=== PATIENT | female | born 1965 | race Caucasian/White ===

== ENCOUNTER 2020-04-08 10:42 | Day surgery (SDC) | payer OTHER ==
[2020-04-08] MEDS ORDERED: ceFAZolin SODIUM 1 GM VIAL ONE (11:21)
[2020-04-08] MEDS ORDERED: LIDOCAINE HCL/PF 2% SDV 5ML VIAL ONE (11:21)
[2020-04-08] MEDS ORDERED: DEXAMETHASONE SOD PHOSPHATE 4 MG/1 ML VIAL ONE (11:21)
[2020-04-08] MEDS ORDERED: PROPOFOL 20 ML ONE ×2 (11:21)
[2020-04-08] MEDS ORDERED: MIDAZOLAM HCL 2 MG/2 ML SINGLE DOSE VIAL ONE ×2 (11:22)
--- NOTE | 2020-04-08 11:33 | HP ---
History & Physical Update - History History: No Change - Physical Physical: No Change - Assessment Assessment: No Change - Plan Plan: No Change
[2020-04-08] MEDS ORDERED: ACETAMINOPHEN 1000 MG/100 ML VIAL (NON FORMULARY) IVPB ONE (11:36)
[2020-04-08] MEDS ORDERED: LIDOCAINE HCL 1%, 10 MG/ML (20ML VIAL) ONE (11:40)
[2020-04-08] MEDS ORDERED: ceFAZolin SODIUM 1 GM VIAL IVPB ONE (11:50)
[2020-04-08] MEDS ORDERED: LIDOCAINE HCL 1%, 10 MG/ML (20ML VIAL) NR ONE (11:58)
[2020-04-08] MEDS ORDERED: KETOROLAC TROMETHAMINE 30 MG/1 ML VIAL ONE (12:05)
[2020-04-08] MEDS ORDERED: ONDANSETRON 4 MG/2 ML VIAL ONE (12:05)
[2020-04-08] MEDS ORDERED: SODIUM CHLORIDE 0.9% P/F 10 ML VIAL IJ ONE (12:06)
[2020-04-08] MEDS ORDERED: oxyCODONE HCL 5 MG TABLET PO PRN ×2 (12:29)
[2020-04-08] MEDS ORDERED: ONDANSETRON 4 MG/2 ML VIAL IVPUSH PRN (12:29)
[2020-04-08] MEDS ORDERED: LACTATED RINGERS SOLUTION 1,000 ML IV SCH (12:30)
[2020-04-08 15:49] VITALS: TEMP 98
[2020-04-08] MEDS ORDERED: oxyCODONE HCL 5 MG TABLET ONE (16:16)
[2020-04-08 17:18] VITALS: BP 116/72; PULSE 69
--- NOTE | 2020-04-08 19:34 | OP ---
DATE OF OPERATION: 04/08/2020 SURGEON: Lance Reddy MD. ANESTHESIOLOGIST: Amna Wynn MD. ANESTHESIA: General anesthesia. CEMENT LOADER: None. ESTIMATED BLOOD LOSS: 50 mL. FINDINGS: Hypermobile urethra. Cystoscopy is normal. SPECIMEN: No specimen. PREOPERATIVE INDICATION: The patient is a 54-year-old female with stress urinary incontinence secondary to hypermobile urethra. She has incontinence on Valsalva. This is well confirmed on urodynamics as well. She comes today for suburethral sling placement. DESCRIPTION OF PROCEDURE: The patient was brought to the OR, placed on the table in the supine position. Given general anesthesia and IV antibiotics and placed in the modified lithotomy position. The groin was prepped and draped sterilely. Meza was placed and timeout was performed. The mid portion of the urethra was identified. Pitressin and lidocaine were injected submucosally over the mid portion of the urethra and in a lateral fashion. The incision was made over the mid portion of the urethra at the midline, and the vaginal mucosa was sharply dissected off the periurethral tissues in a lateral fashion. The bladder was emptied under suction. A mini sling was placed. The trocars were placed under fingertip control through the vaginal incision towards the obturator canal. Both anchors deployed successfully. Cystoscopy was performed with a 17 [place] cystoscope. No evidence of peroration. Both UOs were clear with good clear efflux. No tumors or stones were seen. The bladder was left full. The sling was tightened with a tightening suture until no leakage was seen. It lay flat on the urethra without tension. Good hemostasis was maintained. The incision was closed with 2-0 Vicryl suture. No bleeding was seen at the end of the case. Meza catheter was removed. The patient was woken up. Micha [id number]
== END 2020-04-08 17:10 | disposition home or self-care (01) ==
LOC: JASU-SURG 10:42
PROVIDERS: ATTEND Urology
PROC: 0TSD0ZZ Reposition Urethra, Open Approach (ICD-10-PCS; principal; 2020-04-08 11:30)
DX: N39.3 Stress incontinence (female) (male) (principal); N36.41 Hypermobility of urethra; E11.9 Type 2 diabetes mellitus without complications
CPT/HCPCS: 57288; C1771; 82962; 94760; J0131

== ENCOUNTER 2021-08-13 20:11 | Emergency (ER) | payer OTHER ==
[2021-08-13 20:37] VITALS: TEMP 97.7; BMI 36.8
[2021-08-13] MEDS ORDERED: ACETAMINOPHEN 500 MG TABLET (FP) PO ONE (20:53)
[2021-08-13] MEDS ORDERED: ACETAMINOPHEN 325 MG TABLET (FP) ONE (21:04)
[2021-08-13] MEDS ORDERED: LIDOCAINE PATCH REMOVAL MC SCH (22:00)
[2021-08-13] MEDS ORDERED: LIDOCAINE 5% TOPICAL PATCH TP ONE (23:45)
[2021-08-14] MEDS ORDERED: IBUPROFEN 400 MG TABLET (FP) PO ONE ×2 (00:27→00:38)
[2021-08-14 01:23] VITALS: BP 114/76; PULSE 73
== END 2021-08-14 01:23 | disposition home or self-care (01) ==
LOC: JER 20:11
DX: M54.6 Pain in thoracic spine (principal); W19.XXXA Unspecified fall, initial encounter; Y92.9 Unspecified place or not applicable
CPT/HCPCS: 70450-TC; 72125-TC; 72128-TC; 72131-TC; 99284-25

== ENCOUNTER 2021-12-21 04:08 | Inpatient (IN) | payer OTHER ==
[2021-12-20 09:58] VITALS: BMI 41.3
[2021-12-21] MEDS ORDERED: LIDOCAINE 1%/EPI 1:100000 (20 ML MULTI DOSE VIAL) ONE (11:26)
[2021-12-21] MEDS ORDERED: BUPIVACAINE HCL/PF 0.5% (5MG/ML) 10 ML VIAL ONE (11:55)
[2021-12-21] MEDS ORDERED: THROMBIN (BOVINE) 20,000 UNIT VIAL TP ONE (11:55)
[2021-12-21] MEDS ORDERED: GENTAMICIN SO4 80 MG/2 ML VIAL ONE (11:55)
[2021-12-21] MEDS ORDERED: BUPIVACAINE LIPOSOME/PF (EXPAREL) 266 MG/20 ML VIAL ONE (11:56)
[2021-12-21] MEDS ORDERED: VANCOMYCIN 1 GM in D5W (PRE-DOCKED) 1,000 MG/250 ML IVPB ONE ×3 (12:45→13:35)
[2021-12-21] MEDS ORDERED: LIDOCAINE 1%/EPI 1:100000 (20 ML MULTI DOSE VIAL) IJ ONE ×2 (12:45→13:35)
[2021-12-21] MEDS ORDERED: ceFAZolin SODIUM 1 GM VIAL IVPB ONE ×4 (12:45→18:03)
[2021-12-21] MEDS ORDERED: THROMBIN (BOVINE) 5,000 UNIT VIAL TP ONE ×3 (12:46→14:17)
[2021-12-21] MEDS ORDERED: GENTAMICIN SO4 80 MG/2 ML VIAL IVPB ONE ×4 (12:46→14:45)
[2021-12-21] MEDS ORDERED: ROCURONIUM BROMIDE 50 MG/5 ML SYRINGE ONE ×2 (12:47→13:42)
[2021-12-21] MEDS ORDERED: MIDAZOLAM HCL 2 MG/2 ML SINGLE DOSE VIAL ONE (12:47)
[2021-12-21] MEDS ORDERED: PROPOFOL 20 ML ONE ×2 (12:47→13:56)
[2021-12-21] MEDS ORDERED: HYDROGEN PEROXIDE 473 ML PO ONE ×4 (12:47→14:45)
[2021-12-21] MEDS ORDERED: ONDANSETRON 4 MG/2 ML VIAL IVPUSH PRN ×2 (12:59→15:20)
[2021-12-21] MEDS ORDERED: PROMETHAZINE HCL 25 MG/1 ML VIAL IVPUSH PRN (12:59)
[2021-12-21] MEDS ORDERED: LACTATED RINGERS SOLUTION 1,000 ML IV SCH (13:00)
[2021-12-21] MEDS ORDERED: DEXMEDETOMIDINE HCL 200 MCG/2 ML IVPB ONE (13:37)
[2021-12-21] MEDS ORDERED: ACETAMINOPHEN INJECTION 100 ML IVPB ONE ×2 (13:37→19:45)
[2021-12-21] MEDS ORDERED: ePHEDrine SULFATE 50 MG/1 ML AMPULE ONE (14:04)
[2021-12-21] MEDS ORDERED: diphenhydrAMINE HCL 25 MG CAPSULE (FP) PO PRN (15:29)
[2021-12-21] MEDS ORDERED: HEPARIN NA (PORCINE) 5,000 UNITS/ML 1ML VIAL SQ SCH (15:30)
[2021-12-21] MEDS ORDERED: metFORMIN HCL 500 MG TABLET (FP) PO PRN (15:32)
[2021-12-21] MEDS ORDERED: ALBUTEROL SO4 HFA INHALER IH PRN (15:32)
[2021-12-21] MEDS ORDERED: PATIENT'S OWN MEDICATION (NON-FORMULARY) (Dulaglutide [Trulicity] 3 MG/0.5 ML Pen.Injctr) SQ SCH (15:45)
[2021-12-21] MEDS ORDERED: FENTANYL CITRATE/PF 50 MCG/ML VIAL ONE ×5 (15:58→18:23)
[2021-12-21] MEDS ORDERED: ACETAMINOPHEN 1000 MG/100 ML BAG IVPB PRN (16:22)
[2021-12-21] MEDS: INSULIN SLIDING SCALE (NOVOLOG) 1 VIAL SQ SCH ×2 (16:50→22:03)
[2021-12-21] MEDS ORDERED: ceFAZolin SODIUM 1 GM VIAL ONE (17:59)
[2021-12-21] MEDS ORDERED: CEFAZOLIN 1 GM/D5W 1 GM/50 ML BAG IVPB SCH (18:00)
[2021-12-21] MEDS ORDERED: ACETAMINOPHEN 1000 MG/100 ML BAG IVPB ONE (19:47)
[2021-12-21] MEDS: oxyCODONE HCL 5 MG TABLET PO PRN (21:54)
[2021-12-21] MEDS: DOCUSATE SODIUM 100 MG CAPSULE (FP) PO SCH (21:55)
[2021-12-21] MEDS: ATORVASTATIN CA 40 MG TABLET (FP) PO SCH (21:59)
[2021-12-22] MEDS: morphine SULFATE 4 MG/ML VIAL IVPUSH PRN ×2 (01:34→06:15)
[2021-12-22] MEDS ORDERED: DEXTROSE 5%-WATER - 50 ML IVPB ONE ×3 (02:00→18:09)
[2021-12-22] MEDS ORDERED: ceFAZolin SODIUM 1 GM VIAL ONE ×3 (02:00→18:09)
[2021-12-22] MEDS: CEFAZOLIN 1 GM in DEXTROSE 5%-WATER - 1 GM/50 ML IVPB IVPB SCH ×3 (02:04→18:13)
[2021-12-22] MEDS: LACTATED RINGERS SOLUTION 1,000 ML IV SCH ×3 (03:55→16:58)
[2021-12-22] MEDS: DOCUSATE SODIUM 100 MG CAPSULE (FP) PO SCH ×3 (06:12→22:12)
[2021-12-22] MEDS: INSULIN SLIDING SCALE (NOVOLOG) 1 VIAL SQ SCH ×4 (06:16→22:11)
[2021-12-22] MEDS: LEVOTHYROXINE NA 75 MCG TABLET (FP) PO SCH (06:16)
[2021-12-22] MEDS ORDERED: ONDANSETRON 4 MG/2 ML VIAL IVPUSH ONE (09:27)
[2021-12-22] MEDS ORDERED: ONDANSETRON 4 MG TABLET PO PRN (09:31)
[2021-12-22] MEDS ORDERED: HEPARIN NA (PORCINE) 5,000 UNITS/ML 1ML VIAL SQ SCH (10:00)
[2021-12-22] MEDS: GABAPENTIN 300 MG CAPSULE PO SCH (10:03)
[2021-12-22 10:05] LABS: HEMATOCRIT 38.4 % (32.4-45.2); HEMOGLOBIN 12.6 GM/dL (10.7-15.3); MCH 28.7 pg (25.7-33.7); MCHC 32.7 g/dl (32.0-36.0); MEAN CELL VOLUME 87.9 fl (80-96); MEAN PLT VOLUME 9.9 fl (7.5-11.1); PLATELET COUNT 224 10^3/uL (134-434); RBC 4.37 M/mm3 (3.60-5.2); RDW 14.8 % (11.6-15.6)
[2021-12-22] MEDS: FERROUS SO4 325 MG TABLET (FP) PO SCH (10:11)
[2021-12-22] MEDS: FOLIC ACID 1 MG TABLET (FP) PO SCH (10:11)
[2021-12-22 10:22] LABS: CALCIUM 8.8 mg/dL (8.5-10.1)
[2021-12-22 10:23] LABS: BLOOD UREA NITROGEN 10.4 mg/dL (7-18)
[2021-12-22 10:26] LABS: CREATININE 0.7 mg/dL (0.55-1.3)
[2021-12-22] MEDS: ACETAMINOPHEN 1000 MG/100 ML BAG IVPB SCH ×3 (11:37→22:11)
[2021-12-22] MEDS: ONDANSETRON 4 MG/2 ML VIAL IVPUSH PRN ×2 (13:58→22:17)
[2021-12-22] MEDS: oxyCODONE HCL 5 MG TABLET PO PRN (14:02)
[2021-12-22] MEDS: ATORVASTATIN CA 40 MG TABLET (FP) PO SCH (22:12)
[2021-12-23] MEDS ORDERED: ceFAZolin SODIUM 1 GM VIAL ONE (01:27)
[2021-12-23] MEDS ORDERED: DEXTROSE 5%-WATER - 50 ML IVPB ONE (01:27)
[2021-12-23] MEDS: CEFAZOLIN 1 GM in DEXTROSE 5%-WATER - 1 GM/50 ML IVPB IVPB SCH (02:05)
[2021-12-23] MEDS: LACTATED RINGERS SOLUTION 1,000 ML IV SCH ×2 (03:50→16:15)
[2021-12-23] MEDS: ACETAMINOPHEN 1000 MG/100 ML BAG IVPB SCH (04:18)
[2021-12-23] MEDS: DOCUSATE SODIUM 100 MG CAPSULE (FP) PO SCH ×3 (05:24→22:36)
[2021-12-23] MEDS: LEVOTHYROXINE NA 75 MCG TABLET (FP) PO SCH (06:40)
[2021-12-23] MEDS: INSULIN SLIDING SCALE (NOVOLOG) 1 VIAL SQ SCH ×4 (06:40→22:52)
[2021-12-23] MEDS: oxyCODONE HCL 5 MG TABLET PO PRN ×2 (08:31→23:22)
[2021-12-23 08:56] LABS: HEMATOCRIT 37.1 % (32.4-45.2); HEMOGLOBIN 12.1 GM/dL (10.7-15.3); MCH 29.2 pg (25.7-33.7); MCHC 32.5 g/dl (32.0-36.0); MEAN CELL VOLUME 89.6 fl (80-96); MEAN PLT VOLUME 10.4 fl (7.5-11.1); PLATELET COUNT 202 10^3/uL (134-434); RBC 4.14 M/mm3 (3.60-5.2); RDW 14.6 % (11.6-15.6); WHITE BLOOD COUNT 9.9 K/mm3 (4.0-10.0)
[2021-12-23 09:08] LABS: CALCIUM 8.5 mg/dL (8.5-10.1)
[2021-12-23 09:09] LABS: BLOOD UREA NITROGEN 9.6 mg/dL (7-18); MAGNESIUM 2.2 mg/dL (1.8-2.4)
[2021-12-23 09:12] LABS: CREATININE 0.7 mg/dL (0.55-1.3); PHOSPHOROUS 3.4 mg/dL (2.5-4.9)
[2021-12-23] MEDS: FOLIC ACID 1 MG TABLET (FP) PO SCH (09:28)
[2021-12-23] MEDS: BACLOFEN 10 MG TABLET (FP) PO SCH ×2 (09:28→22:36)
[2021-12-23] MEDS: GABAPENTIN 300 MG CAPSULE PO SCH (09:28)
[2021-12-23] MEDS: FERROUS SO4 325 MG TABLET (FP) PO SCH (09:28)
[2021-12-23] MEDS: ACETAMINOPHEN 500 MG TABLET (FP) PO SCH ×3 (11:17→22:35)
[2021-12-23] MEDS ORDERED: INSULIN (NOVOLOG) ASPART 100 UNITS/ML 10ML VIAL ONE (11:19)
[2021-12-23] MEDS: ONDANSETRON 4 MG/2 ML VIAL IVPUSH PRN (12:04)
[2021-12-23] MEDS ORDERED: PIPERACILLIN/TAZOBACTAM 4.5 GM VIAL IVPB ONE ×2 (14:36→22:08)
[2021-12-23] MEDS ORDERED: DEXTROSE 5%-WATER 100 ML IVPB ONE ×2 (14:36→22:08)
[2021-12-23] MEDS: PIPERACILLIN/TAZOB 4.5 GM 4.5 GM in DEXTROSE 5%-WATER 100 ML IVPB SCH ×2 (14:49→21:54)
[2021-12-23] MEDS: ATORVASTATIN CA 40 MG TABLET (FP) PO SCH (22:36)
[2021-12-24] MEDS ORDERED: DEXTROSE 5%-WATER 100 ML IVPB ONE ×2 (02:48→09:44)
[2021-12-24] MEDS ORDERED: PIPERACILLIN/TAZOBACTAM 4.5 GM VIAL IVPB ONE ×2 (02:48→09:44)
[2021-12-24] MEDS: PIPERACILLIN/TAZOB 4.5 GM 4.5 GM in DEXTROSE 5%-WATER 100 ML IVPB SCH ×3 (03:00→15:41)
[2021-12-24] MEDS: LACTATED RINGERS SOLUTION 1,000 ML IV SCH (03:05)
[2021-12-24] MEDS: ACETAMINOPHEN 500 MG TABLET (FP) PO SCH ×4 (06:19→22:00)
[2021-12-24] MEDS: DOCUSATE SODIUM 100 MG CAPSULE (FP) PO SCH ×3 (06:19→21:52)
[2021-12-24] MEDS: LEVOTHYROXINE NA 75 MCG TABLET (FP) PO SCH (06:21)
[2021-12-24] MEDS: INSULIN SLIDING SCALE (NOVOLOG) 1 VIAL SQ SCH ×4 (06:24→21:53)
[2021-12-24 09:19] LABS: HEMATOCRIT 37.4 % (32.4-45.2); HEMOGLOBIN 12.2 GM/dL (10.7-15.3); MCH 29.1 pg (25.7-33.7); MCHC 32.5 g/dl (32.0-36.0); MEAN CELL VOLUME 89.5 fl (80-96); PLATELET COUNT 223 10^3/uL (134-434); RBC 4.18 M/mm3 (3.60-5.2); RDW 14.6 % (11.6-15.6); WHITE BLOOD COUNT 10.4 K/mm3 (4.0-10.0)
[2021-12-24 09:42] LABS: BLOOD UREA NITROGEN 8.8 mg/dL (7-18)
[2021-12-24 09:45] LABS: CREATININE 0.8 mg/dL (0.55-1.3)
[2021-12-24] MEDS: oxyCODONE HCL 5 MG TABLET PO PRN ×2 (10:07→17:26)
[2021-12-24] MEDS: FERROUS SO4 325 MG TABLET (FP) PO SCH (10:07)
[2021-12-24] MEDS: BACLOFEN 10 MG TABLET (FP) PO SCH ×2 (10:07→21:52)
[2021-12-24] MEDS: GABAPENTIN 300 MG CAPSULE PO SCH (10:08)
[2021-12-24] MEDS: FOLIC ACID 1 MG TABLET (FP) PO SCH (10:08)
[2021-12-24] MEDS: ENOXAPARIN NA (PORCINE) 40 MG/0.4 ML DISP.SYRIN SQ SCH ×2 (10:08→21:52)
[2021-12-24] MEDS: AMOX TR/POT CLAV 875MG/125MG TABLETS (FP) PO SCH (17:23)
[2021-12-24] MEDS ORDERED: BISACODYL 10 MG SUPP.RECT PR ONE (19:10)
[2021-12-24] MEDS ORDERED: SENNOSIDES 8.6MG TABLET (FP) PO PRN (19:10)
[2021-12-24] MEDS ORDERED: BISACODYL 5 MG TABLET.DR (FP) PO ONE (19:10)
[2021-12-24] MEDS: ATORVASTATIN CA 40 MG TABLET (FP) PO SCH (21:52)
[2021-12-25] MEDS: DOCUSATE SODIUM 100 MG CAPSULE (FP) PO SCH ×3 (05:45→22:03)
[2021-12-25] MEDS: ACETAMINOPHEN 500 MG TABLET (FP) PO SCH ×4 (05:45→22:00)
[2021-12-25] MEDS: LEVOTHYROXINE NA 75 MCG TABLET (FP) PO SCH (06:01)
[2021-12-25] MEDS: INSULIN SLIDING SCALE (NOVOLOG) 1 VIAL SQ SCH ×4 (06:01→22:03)
[2021-12-25] MEDS: GABAPENTIN 300 MG CAPSULE PO SCH (09:16)
[2021-12-25] MEDS: AMOX TR/POT CLAV 875MG/125MG TABLETS (FP) PO SCH ×2 (09:16→17:29)
[2021-12-25] MEDS: BACLOFEN 10 MG TABLET (FP) PO SCH ×2 (09:16→22:00)
[2021-12-25] MEDS: ENOXAPARIN NA (PORCINE) 40 MG/0.4 ML DISP.SYRIN SQ SCH ×2 (09:16→22:00)
[2021-12-25] MEDS: FERROUS SO4 325 MG TABLET (FP) PO SCH (09:17)
[2021-12-25] MEDS: FOLIC ACID 1 MG TABLET (FP) PO SCH (09:17)
[2021-12-25 11:19] LABS: HEMATOCRIT 37.5 % (32.4-45.2); HEMOGLOBIN 12.3 GM/dL (10.7-15.3); MCH 29.2 pg (25.7-33.7); MCHC 32.9 g/dl (32.0-36.0); MEAN CELL VOLUME 88.8 fl (80-96); MEAN PLT VOLUME 10.5 fl (7.5-11.1); PLATELET COUNT 243 10^3/uL (134-434); RBC 4.22 M/mm3 (3.60-5.2); RDW 14.1 % (11.6-15.6); WHITE BLOOD COUNT 11.4 K/mm3 (4.0-10.0)
[2021-12-25 11:46] LABS: CALCIUM 9.2 mg/dL (8.5-10.1)
[2021-12-25 11:47] LABS: BLOOD UREA NITROGEN 9.3 mg/dL (7-18)
[2021-12-25 11:50] LABS: CREATININE 0.7 mg/dL (0.55-1.3)
[2021-12-25] MEDS: ATORVASTATIN CA 40 MG TABLET (FP) PO SCH (22:02)
[2021-12-25] MEDS ORDERED: INSULIN (NOVOLOG) ASPART 100 UNITS/ML 10ML VIAL ONE (22:09)
[2021-12-26] MEDS: oxyCODONE HCL 5 MG TABLET PO PRN ×2 (05:52→23:18)
[2021-12-26] MEDS: DOCUSATE SODIUM 100 MG CAPSULE (FP) PO SCH ×3 (05:53→21:34)
[2021-12-26] MEDS: ACETAMINOPHEN 500 MG TABLET (FP) PO SCH ×4 (05:53→23:16)
[2021-12-26] MEDS: LEVOTHYROXINE NA 75 MCG TABLET (FP) PO SCH (06:20)
[2021-12-26] MEDS: INSULIN SLIDING SCALE (NOVOLOG) 1 VIAL SQ SCH ×4 (07:22→21:34)
[2021-12-26] MEDS: AMOX TR/POT CLAV 875MG/125MG TABLETS (FP) PO SCH ×2 (08:02→16:45)
[2021-12-26] MEDS: BACLOFEN 10 MG TABLET (FP) PO SCH ×2 (09:43→21:34)
[2021-12-26] MEDS: FOLIC ACID 1 MG TABLET (FP) PO SCH (09:43)
[2021-12-26] MEDS: GABAPENTIN 300 MG CAPSULE PO SCH (09:43)
[2021-12-26] MEDS: FERROUS SO4 325 MG TABLET (FP) PO SCH (09:44)
[2021-12-26] MEDS: ENOXAPARIN NA (PORCINE) 40 MG/0.4 ML DISP.SYRIN SQ SCH ×2 (09:44→21:35)
[2021-12-26 09:45] LABS: HEMATOCRIT 34.5 % (32.4-45.2); HEMOGLOBIN 11.5 GM/dL (10.7-15.3); MCH 29.5 pg (25.7-33.7); MCHC 33.5 g/dl (32.0-36.0); MEAN CELL VOLUME 88.1 fl (80-96); MEAN PLT VOLUME 9.9 fl (7.5-11.1); PLATELET COUNT 235 10^3/uL (134-434); RBC 3.91 M/mm3 (3.60-5.2); WHITE BLOOD COUNT 9.7 K/mm3 (4.0-10.0)
[2021-12-26 10:08] LABS: CALCIUM 8.9 mg/dL (8.5-10.1)
[2021-12-26 10:12] LABS: CREATININE 0.7 mg/dL (0.55-1.3)
[2021-12-26] MEDS: ATORVASTATIN CA 40 MG TABLET (FP) PO SCH (21:35)
[2021-12-27] MEDS: ACETAMINOPHEN 500 MG TABLET (FP) PO SCH ×2 (05:38→12:16)
[2021-12-27] MEDS: DOCUSATE SODIUM 100 MG CAPSULE (FP) PO SCH (05:38)
[2021-12-27] MEDS: INSULIN SLIDING SCALE (NOVOLOG) 1 VIAL SQ SCH ×2 (06:06→12:21)
[2021-12-27] MEDS: LEVOTHYROXINE NA 75 MCG TABLET (FP) PO SCH (06:24)
[2021-12-27 07:57] LABS: HEMATOCRIT 35.3 % (32.4-45.2); HEMOGLOBIN 11.7 GM/dL (10.7-15.3); MCH 29.2 pg (25.7-33.7); MCHC 33.1 g/dl (32.0-36.0); MEAN PLT VOLUME 9.8 fl (7.5-11.1); PLATELET COUNT 260 10^3/uL (134-434); RBC 4.01 M/mm3 (3.60-5.2); RDW 14.2 % (11.6-15.6); WHITE BLOOD COUNT 10.2 K/mm3 (4.0-10.0)
[2021-12-27 08:27] LABS: CALCIUM 8.8 mg/dL (8.5-10.1)
[2021-12-27 08:28] LABS: BLOOD UREA NITROGEN 9.4 mg/dL (7-18)
[2021-12-27 08:31] LABS: CREATININE 0.7 mg/dL (0.55-1.3)
[2021-12-27] MEDS: PIPERACILLIN/TAZOB 4.5 GM 4.5 GM in DEXTROSE 5%-WATER 100 ML IVPB SCH (09:03)
[2021-12-27 09:31] VITALS: BP 125/73; PULSE 87; TEMP 97.7
[2021-12-27] MEDS: FOLIC ACID 1 MG TABLET (FP) PO SCH (09:44)
[2021-12-27] MEDS: FERROUS SO4 325 MG TABLET (FP) PO SCH (09:44)
[2021-12-27] MEDS: ENOXAPARIN NA (PORCINE) 40 MG/0.4 ML DISP.SYRIN SQ SCH (09:44)
[2021-12-27] MEDS: GABAPENTIN 300 MG CAPSULE PO SCH (09:44)
[2021-12-27] MEDS: BACLOFEN 10 MG TABLET (FP) PO SCH (09:44)
[2021-12-27] MEDS: AMOX TR/POT CLAV 875MG/125MG TABLETS (FP) PO SCH (09:45)
== END 2021-12-27 16:43 | disposition home or self-care (01) | DRG 321 ==
LOC: J2C 04:08 → J8W 20:34
PROVIDERS: ADMIT Neurological Surgery; ATTEND Internal Medicine
PROC: 0RB30ZZ Excision of Cervical Vertebral Disc, Open Approach (ICD-10-PCS; 2021-12-21)
PROC: 00NW0ZZ Release Cervical Spinal Cord, Open Approach (ICD-10-PCS; 2021-12-21)
PROC: 4A11X4G Monitoring of Peripheral Nervous Electrical Activity, Intraoperative, External Approach (ICD-10-PCS; 2021-12-21)
PROC: 0RG20A0 Fusion of 2 or more Cervical Vertebral Joints with Interbody Fusion Device, Anterior Approach, Anterior Column, Open Approach (ICD-10-PCS; principal; 2021-12-21 13:00)
DX: M47.12 Other spondylosis with myelopathy, cervical region (principal); M40.292 Other kyphosis, cervical region; E11.9 Type 2 diabetes mellitus without complications; E03.9 Hypothyroidism, unspecified; E78.5 Hyperlipidemia, unspecified; D72.829 Elevated white blood cell count, unspecified; Z79.84 Long term (current) use of oral hypoglycemic drugs
CPT/HCPCS: 36415; 71045-TC-FY; 71046-TC-FY; 72125-TC; 76000-TC-FY; 80048; 82962; 83735; 84100; 85027; 86850; 86900; 86901; 93005; 93010; 94010; 94760; 97116-GP; 97162-GP; J0475